=== PATIENT | male | born 1990 | race Caucasian/White ===

== ENCOUNTER 2017-12-04 13:29 | Emergency (ER) | payer OTHER ==
[~2017-12-04] VITALS: Ht 175.3 cm; Wt 59.0 kg
[~2017-12-04 13:29] MED LIST: BACLOFEN10 MG PO; ETODOLAC400 MG PO; PENICILLIN V P500 MG PO; PERCOCET 5-3251 EACH PO; TRAMADOL HCL50 MG PO
[2017-12-04] MEDS ORDERED: SEROQUEL50 MG PO (15:08)
== END 2017-12-04 15:20 | disposition home or self-care (01) ==
LOC: ED 13:29
DX: F31.9 Bipolar disorder, unspecified (principal); F17.200 Nicotine dependence, unspecified, uncomplicated
CPT/HCPCS: 36415; 80053; 80176; 81001; 84443; 85025; 99283; G0480

== ENCOUNTER 2020-05-14 18:38 | Emergency (ER) | payer OTHER ==
[~2020-05-14] VITALS: Ht 175.3 cm; Wt 59.0 kg
[~2020-05-14 18:38] MED LIST changes: +SEROQUEL50 MG PO
--- OUTSIDE RECORDS SUMMARY | 2020-05-14 18:40 | XMS ---
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 Has Care Guidelines CARE PROVIDERS There are no care providers on record at this time. Guidelines Source: [email or web address] Guidelines Date: 04/25/2019 Care Recommendation: Reji has been receiving services from [email or web address] in [place], [place] [phone].\T\nbsp;\T\nbsp; E.D. VISIT COUNT (12 MO.) [address] TOTAL 2 NOTE: Visits indicate total known visits. 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
== END 2020-05-14 21:13 | disposition left against medical advice (07) ==
LOC: ED 18:38
DX: Z53.21 Procedure and treatment not carried out due to patient leaving prior to being seen by health care provider (principal); F17.200 Nicotine dependence, unspecified, uncomplicated

== ENCOUNTER 2020-08-09 21:27 | Emergency (ER) | payer OTHER ==
[~2020-08-09] VITALS: Ht 175.3 cm; Wt 59.0 kg
--- OUTSIDE RECORDS SUMMARY | 2020-08-09 21:30 | XMS ---
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 Details: [facility]BS CRITERIA MET - [facility] - Has Care Guidelines CARE PROVIDERS There are no care providers on record at this time. Guidelines Source: [facility] Guidelines Date: 04/25/2019 Care Recommendation: Reji has been receiving services from [facility] in [place], [place] [phone].\T\nbsp;\T\nbsp; E.D. VISIT COUNT (12 MO.) [address] TOTAL 3 NOTE: Visits indicate total known visits. ED/UCC VISIT TRACKING (12 MO.) 08/09/2020 21:27 [facility] [place] TYPE: Emergency COMPLAINT: - MEDICAL CLEARANCE 05/14/2020 18:38 [facility] [place] TYPE: Emergency COMPLAINT: - SEIZURES, LEFT ARM PAIN DIAGNOSES: - Unspecified convulsions - Procedure and treatment not carried out due to patient leavin - Nicotine dependence, unspecified, uncomplicated 09/23/2019 05:58 [facility] [place] TYPE: Emergency COMPLAINT: - PSYCHOTIC - [...] visits to display in this time frame [id number]
[2020-08-09] MEDS ORDERED: HYDROXYZINE HCL50 MG PO (21:39)
== END 2020-08-09 23:50 | disposition home or self-care (01) ==
LOC: ED 21:27
DX: F31.9 Bipolar disorder, unspecified (principal); F17.200 Nicotine dependence, unspecified, uncomplicated; Z79.899 Other long term (current) drug therapy
CPT/HCPCS: 80053; 80176; 81001; 84443; 85025; 99283; G0480

== ENCOUNTER 2025-03-20 21:59 | Emergency (ER) | payer OTHER ==
[~2025-03-20] VITALS: Ht 175.3 cm; Wt 87.0 kg
[~2025-03-20 21:59] MED LIST changes: +HYDROXYZINE HCL50 MG PO
--- OUTSIDE RECORDS SUMMARY | 2025-03-20 22:04 | XMS ---
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 No recent Security Events currently on file CRITERIA MET - Group Notification CARE PROVIDERS -, [facility]ist: Accounts Payable Clerk Current [employer] PHONE: [phone] -[place]- Dentist: Accounts Payable Clerk Current [facility] PHONE: [phone] DALILA REYES [facility]: [facility] PHONE: Unknown Alvaro Garvey [facility] Current PHONE: [phone] Care Guidelines exist for the following facilities: [facility] ( 04/25/2019 ) [facility]i VISIT COUNT (12 MO.) 2 SARAH Swanson TOTAL 2 NOTE: Visits indicate total known visits. ED/UCC VISIT TRACKING (12 MO.) 03/20/2025 22:01 [facility] [place] TYPE: Emergency COMPLAINT: - ARM INJURY/ 11/20/2024 14:35 [facility] [place] TYPE: Emergency COMPLAINT: - LT SIDE PAIN INPATIENT VISIT TRACKING (12 MO.) No inpatient visits to display in this time frame [id number]
[2025-03-20] MEDS ORDERED: MORPHINE SULFATE 4 MG/ML VIAL IV ONE (22:15)
[2025-03-20] MEDS ORDERED: LIDOCAINE/RACEPINEP/TETRACAINE 3 ML SYR TOP ONE (22:15)
[2025-03-20] MEDS ORDERED: DIPHTH,PERTUSS(ACELL),TET VAC 0.5 ML SYRINGE IM ONE (22:15)
[2025-03-20] MEDS ORDERED: NAPROSYN500 MG PO (22:35)
[2025-03-20] MEDS ORDERED: TRAMADOL HCL 50 MG HOME.PACK PO ONE (22:45)
[2025-03-20 23:00] VITALS: BP 104/76
== END 2025-03-20 23:00 | disposition left against medical advice (07) ==
LOC: ED 21:59
DX: S52.124A Nondisplaced fracture of head of right radius, initial encounter for closed fracture (principal); S40.811A Abrasion of right upper arm, initial encounter; F17.200 Nicotine dependence, unspecified, uncomplicated; Z53.29 Procedure and treatment not carried out because of patient's decision for other reasons; W17.89XA Other fall from one level to another, initial encounter
CPT/HCPCS: 73030; 73070; 90471; 90715; 96374; 99283-25; J2270

== ENCOUNTER 2025-09-14 15:03 | Emergency (ER) | payer OTHER ==
[~2025-09-14] VITALS: Ht 175.3 cm; Wt 66.0 kg
[~2025-09-14 15:03] MED LIST changes: +NAPROSYN500 MG PO
--- OUTSIDE RECORDS SUMMARY | 2025-09-14 15:11 | XMS ---
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 No recent Security Events currently on file CRITERIA MET - Group Notification CARE PROVIDERS -, [facility]ist: Range Management Specialist Current [place] PHONE: [phone] -[place]- Dentist: Range Management Specialist Current [facility] PHONE: [phone] DALILA REYES [facility]: [facility] PHONE: Unknown Alvaro Garvey [facility] Current PHONE: [phone] Care Guidelines exist for the following facilities: [facility] ( 04/25/2019 ) [facility]i VISIT COUNT (12 MO.) 3 SARAH Valentine [email or web address] TOTAL 4 NOTE: Visits indicate total known visits. ED/UCC VISIT TRACKING (12 MO.) 09/14/2025 15:04 [facility] [place] TYPE: Emergency COMPLAINT: - CONFUSION 03/21/2025 08:47 [facility] [place] TYPE: Emergency DIAGNOSES: - Nondisplaced fracture of head of right radius, initial encounter for closed fracture - POSS BROKEN ARM 03/20/2025 22:01 [facility] [place] TYPE: Emergency COMPLAINT: - ARM INJURY/ DIAGNOSES: - Abrasion of right upper arm, initial encounter - Nicotine dependence, unspecified, uncomplicated - Nondisplaced fracture of head of right radius, initial encounter for closed fracture - Other fall from one level to another, initial encounter - Procedure and treatment not carried out because of patient's decision for other reasons - Unspecified injury of right shoulder and upper arm, initial encounter 11/20/2024 14:35 [facility] [place] TYPE: Emergency COMPLAINT: - LT SIDE PAIN INPATIENT VISIT TRACKING (12 MO.) No inpatient visits to display in this time frame [id number]
[2025-09-14] MEDS ORDERED: VITAMIN C WIT1000 M2 PO (15:58)
[2025-09-14 16:58] VITALS: BP 140/82
== END 2025-09-14 16:59 | disposition home or self-care (01) ==
LOC: ED 15:03
DX: R41.0 Disorientation, unspecified (principal); R41.89 Other symptoms and signs involving cognitive functions and awareness; F17.200 Nicotine dependence, unspecified, uncomplicated
CPT/HCPCS: 99284